=== PATIENT | female | born 1945 | race Caucasian/White ===

== ENCOUNTER 2024-11-23 15:05 | Outpatient (CLI) | payer OTHER | END 2024-11-23 15:06 | disposition home or self-care (01) | LOC: CSHCP 15:05 | PROVIDERS: ATTEND Internal Medicine Critical Care Medicine | DX: R91.8 Other nonspecific abnormal finding of lung field (principal); J44.9 Chronic obstructive pulmonary disease, unspecified | CPT/HCPCS: 94060; 94664; 94726; 94729; 94760 ==